=== PATIENT | female | born 1960 | race Caucasian/White ===

== ENCOUNTER 2022-03-06 10:08 | Outpatient (CLI) | payer OTHER | END 2022-03-06 10:09 | disposition home or self-care (01) | LOC: CSHLAB 10:08 | PROVIDERS: ATTEND Internal Medicine Gastroenterology | DX: Z20.822 Contact with and (suspected) exposure to COVID-19 (principal); R10.9 Unspecified abdominal pain; Z12.11 Encounter for screening for malignant neoplasm of colon | CPT/HCPCS: 87811 ==

== ENCOUNTER 2022-03-09 09:05 | Day surgery (SDC) | payer OTHER ==
[2022-03-05 10:50] VITALS: BMI 31.4
[2022-03-09] MEDS ORDERED: Lidocaine 1% MPF 2 ML VIAL ONE (09:50)
[2022-03-09] MEDS ORDERED: PROPOFOL 20 ML ONE ×2 (10:02)
[2022-03-09] MEDS ORDERED: Midazolam HCl 2 mg/2 ml Vial ONE (10:02)
[2022-03-09] MEDS ORDERED: Lidocaine 2% MPF 10 ML AMP (For Epidural Use) ONE (10:02)
== END 2022-03-09 13:48 | disposition home or self-care (01) ==
LOC: CSHSDC 09:05
PROVIDERS: ATTEND Internal Medicine Gastroenterology
PROC: 0DJD8ZZ Inspection of Lower Intestinal Tract, Via Natural or Artificial Opening Endoscopic (ICD-10-PCS; principal; 2022-03-09)
PROC: 0DB48ZX Excision of Esophagogastric Junction, Via Natural or Artificial Opening Endoscopic, Diagnostic (ICD-10-PCS; principal; 2022-03-09)
DX: Z12.11 Encounter for screening for malignant neoplasm of colon (principal); K57.30 Diverticulosis of large intestine without perforation or abscess without bleeding; K64.9 Unspecified hemorrhoids; K29.50 Unspecified chronic gastritis without bleeding; K21.00 Gastro-esophageal reflux disease with esophagitis, without bleeding; K59.00 Constipation, unspecified; E03.9 Hypothyroidism, unspecified; E66.9 Obesity, unspecified; Z68.31 Body mass index [BMI] 31.0-31.9, adult; Z88.1 Allergy status to other antibiotic agents; Z20.822 Contact with and (suspected) exposure to COVID-19; Z90.49 Acquired absence of other specified parts of digestive tract; Z90.710 Acquired absence of both cervix and uterus; Z98.890 Other specified postprocedural states
CPT/HCPCS: 88305; J2250; J2704

== ENCOUNTER 2025-03-30 14:35 | Outpatient (CLI) | payer OTHER | END 2025-03-30 14:36 | disposition home or self-care (01) | LOC: CSHMAMMO 14:35 | PROVIDERS: ATTEND Nurse Practitioner Gerontology | DX: Z12.31 Encounter for screening mammogram for malignant neoplasm of breast (principal); M81.0 Age-related osteoporosis without current pathological fracture; M85.851 Other specified disorders of bone density and structure, right thigh | CPT/HCPCS: 77063; 77067; 77080 ==

== ENCOUNTER 2025-07-20 14:36 | Outpatient (CLI) | payer OTHER | END 2025-07-20 14:37 | disposition home or self-care (01) | LOC: CSHMRI 14:36 | PROVIDERS: ATTEND Psychiatry & Neurology Neurology | DX: G44.221 Chronic tension-type headache, intractable (principal); H74.8X3 Other specified disorders of middle ear and mastoid, bilateral | CPT/HCPCS: 70551 ==